=== PATIENT | male | born 1985 | race Caucasian/White ===

== ENCOUNTER 2021-08-14 03:10 | Emergency (ER) | payer OTHER ==
[2021-08-14 04:09] VITALS: TEMP 97.7; BMI 27.1
[2021-08-14] MEDS ORDERED: LIDOCAINE 1%/EPI 1:100000 (20 ML MULTI DOSE VIAL) PNB ONE (04:19)
[2021-08-14] MEDS ORDERED: LIDOCAINE 1%/EPI 1:100000 (20 ML MULTI DOSE VIAL) ONE (04:25)
[2021-08-14] MEDS ORDERED: ACETAMINOPHEN 500 MG TABLET (FP) PO ONE (04:31)
[2021-08-14] MEDS ORDERED: ACETAMINOPHEN 325 MG TABLET (FP) ONE (04:47)
[2021-08-14 06:35] VITALS: BP 111/97; PULSE 84
== END 2021-08-14 07:33 | disposition short-term general hospital (02) ==
LOC: JER 03:10
DX: S02.2XXA Fracture of nasal bones, initial encounter for closed fracture (principal); S81.812A Laceration without foreign body, left lower leg, initial encounter; Y04.0XXA Assault by unarmed brawl or fight, initial encounter
CPT/HCPCS: 70450-TC; 70486-TC; 72125-TC; 73590-TC-LT-FY; 99285-25

== ENCOUNTER 2023-02-17 17:12 | Inpatient (IN) | payer OTHER ==
[2023-02-17 20:59] VITALS: BMI 28.7
[2023-02-17] MEDS ORDERED: LOPERAMIDE HCL 2 MG CAPSULE PO PRN (21:24)
[2023-02-17] MEDS ORDERED: POLYETHYLENE GLYCOL (HEALTHYLAX) 3350 17 GM PACKET PO PRN (21:24)
[2023-02-17] MEDS ORDERED: BENZONATATE 200 MG CAPSULE PO PRN (21:24)
[2023-02-17] MEDS ORDERED: BISMUTH SUBSALICYLATE 524 MG/30 ML PO PRN (21:24)
[2023-02-17] MEDS ORDERED: NALOXONE HCL (KLOXXADO) 8 MG SPRAY NS PRN (21:24)
[2023-02-17] MEDS ORDERED: DICYCLOMINE HCL 10 MG CAPSULE PO PRN (21:24)
[2023-02-17] MEDS ORDERED: METHOCARBAMOL 500 MG TABLET PO PRN (21:24)
[2023-02-17] MEDS ORDERED: BENZOCAINE/MENTHOL (CHLORASEPTIC ) LOZENGE MM PRN (21:24)
[2023-02-17] MEDS ORDERED: NALOXONE HCL 0.4 MG/ML VIAL IM PRN (21:24)
[2023-02-17] MEDS ORDERED: MAG HYDROX/AL HYDROX/SIMETH 30 ML UNIT-DOSE CUP PO PRN (21:24)
[2023-02-17] MEDS ORDERED: P-EPHED 60MG/TRIPROLIDI 2.5MG TABLET PO PRN (21:24)
[2023-02-17] MEDS ORDERED: IBUPROFEN 400 MG TABLET (FP) PO PRN (21:24)
[2023-02-17] MEDS ORDERED: MAGNESIUM HYDROX 2400MG/30ML ORAL SUSPENSION 30 ML CUP PO PRN (21:24)
[2023-02-17] MEDS ORDERED: guaiFENesin 600 MG TABLET.ER (FP) PO PRN (21:24)
[2023-02-17] MEDS ORDERED: methaDONE HCL 10 MG TABLET (FOR DETOX USE ONLY) PO ONE (22:30)
[2023-02-17] MEDS ORDERED: methaDONE HCL 10 MG TABLET (FOR DETOX USE ONLY) ONE (22:30)
[2023-02-17] MEDS ORDERED: MELATONIN 5 MG TABLETS ONE (22:31)
[2023-02-17] MEDS ORDERED: diazePAM 5 MG TABLET ONE (22:39)
[2023-02-17] MEDS: diazePAM 5 MG TABLET PO SCH (22:49)
[2023-02-17] MEDS: THIAMINE HCL 100 MG TABLET (FP) PO SCH (22:52)
[2023-02-17] MEDS: MELATONIN 5 MG TABLETS PO SCH (22:52)
[2023-02-17] MEDS ORDERED: cloNIDine HCL 0.1 MG TABLET ONE (22:58)
[2023-02-17] MEDS: cloNIDine HCL 0.1 MG TABLET PO PRN (23:00)
[2023-02-18] MEDS: diazePAM 5 MG TABLET PO SCH ×4 (05:53→22:49)
[2023-02-18] MEDS: IBUPROFEN 600 MG TABLET (FP) PO PRN ×3 (05:56→20:21)
[2023-02-18] MEDS: PRENATAL VITAMINS W/ FOLIC ACID TABLET (FP) PO SCH (10:21)
[2023-02-18] MEDS: ACETAMINOPHEN 325 MG TABLET (FP) PO PRN ×2 (10:28→18:05)
[2023-02-18] MEDS: ONDANSETRON *ODT* 4 MG TABLET SL PRN ×2 (10:29→18:07)
[2023-02-18 10:40] LABS: POTASSIUM 4.4 mmol/L (3.5-5.1)
[2023-02-18 10:42] LABS: HEMATOCRIT 39.7 % (35.4-49); HEMOGLOBIN 13.3 GM/dL (11.7-16.9); MCH 26.4 pg (25.7-33.7); MCHC 33.3 g/dl (32.0-35.9); MEAN CELL VOLUME 79.3 fl (80-96); MEAN PLT VOLUME 8.4 fl (7.5-11.1); PLATELET COUNT 309 10^3/uL (134-434); RBC 5.01 M/mm3 (4.00-5.60); RDW 15.5 % (11.9-15.9); WHITE BLOOD COUNT 7.3 K/mm3 (4.0-10.0)
[2023-02-18 10:47] LABS: ALBUMIN 3.4 g/dl (3.4-5.0); BLOOD UREA NITROGEN 11.2 mg/dL (7-18)
[2023-02-18 10:48] LABS: CALCIUM 9.4 mg/dL (8.5-10.1)
[2023-02-18 10:50] LABS: CREATININE 0.9 mg/dL (0.55-1.3)
[2023-02-18 10:51] LABS: TOT PROT 7.4 g/dl (6.4-8.2)
[2023-02-18 10:54] LABS: BILIRUBIN,TOTAL 0.7 mg/dL (0.2-1)
[2023-02-18] MEDS: cloNIDine HCL 0.1 MG TABLET PO PRN ×2 (14:23→22:47)
[2023-02-18] MEDS: diazePAM 5 MG TABLET PO PRN ×2 (14:24→20:21)
[2023-02-18] MEDS ORDERED: hydrOXYzine PAMOATE 25 MG CAPSULE (FP) PO ONE (16:58)
[2023-02-18] MEDS: METHOCARBAMOL 500 MG TABLET PO PRN (18:14)
[2023-02-18] MEDS ORDERED: METHOCARBAMOL 500 MG TABLET PO SCH (22:00)
[2023-02-18] MEDS: THIAMINE HCL 100 MG TABLET (FP) PO SCH (22:47)
[2023-02-18] MEDS: MELATONIN 5 MG TABLETS PO SCH (22:47)
[2023-02-19] MEDS: diazePAM 5 MG TABLET PO SCH ×3 (05:56→22:21)
[2023-02-19] MEDS: METHOCARBAMOL 500 MG TABLET PO PRN ×3 (06:02→20:12)
[2023-02-19] MEDS: IBUPROFEN 600 MG TABLET (FP) PO PRN ×3 (06:02→20:13)
[2023-02-19] MEDS: cloNIDine HCL 0.1 MG TABLET PO PRN ×3 (06:07→17:42)
[2023-02-19] MEDS: PRENATAL VITAMINS W/ FOLIC ACID TABLET (FP) PO SCH (09:41)
[2023-02-19] MEDS: diazePAM 5 MG TABLET PO PRN ×2 (09:44→17:43)
[2023-02-19] MEDS ORDERED: methaDONE HCL 10 MG TABLET (FOR DETOX USE ONLY) PO ONE ×2 (10:00→12:12)
[2023-02-19] MEDS: ACETAMINOPHEN 325 MG TABLET (FP) PO PRN ×2 (10:49→17:42)
[2023-02-19] MEDS: MELATONIN 5 MG TABLETS PO SCH (22:21)
[2023-02-19] MEDS: THIAMINE HCL 100 MG TABLET (FP) PO SCH (22:21)
[2023-02-19] MEDS ORDERED: traZODone HCL 50 MG TABLET (FP) PO ONE (23:45)
[2023-02-20] MEDS: IBUPROFEN 600 MG TABLET (FP) PO PRN (05:39)
[2023-02-20] MEDS: METHOCARBAMOL 500 MG TABLET PO PRN (05:39)
[2023-02-20] MEDS ORDERED: diazePAM 5 MG TABLET PO SCH (06:00)
[2023-02-20] MEDS: diazePAM 5 MG TABLET PO PRN (08:01)
[2023-02-20 09:50] VITALS: BP 153/94; PULSE 78; RESP 17; TEMP 98.4
[2023-02-20] MEDS: PRENATAL VITAMINS W/ FOLIC ACID TABLET (FP) PO SCH (10:20)
[2023-02-21] MEDS ORDERED: diazePAM 5 MG TABLET PO ONE (06:00)
[2023-02-21] MEDS ORDERED: methaDONE HCL 10 MG TABLET (FOR DETOX USE ONLY) PO ONE (10:00)
== END 2023-02-20 10:56 | disposition home or self-care (01) | DRG 773 ==
LOC: YASAS 17:12 → Y3N 22:07
PROVIDERS: ADMIT Allergy & Immunology; ATTEND Surgery
PROC: HZ2ZZZZ Detoxification Services for Substance Abuse Treatment (ICD-10-PCS; principal; 2023-02-17)
DX: F11.23 Opioid dependence with withdrawal (principal); F13.230 Sedative, hypnotic or anxiolytic dependence with withdrawal, uncomplicated; F14.20 Cocaine dependence, uncomplicated; F19.282 Other psychoactive substance dependence with psychoactive substance-induced sleep disorder; G47.00 Insomnia, unspecified; Z56.0 Unemployment, unspecified; Z59.00 Homelessness unspecified; S52.612D Displaced fracture of left ulna styloid process, subsequent encounter for closed fracture with routine healing; Y09 Assault by unspecified means
CPT/HCPCS: 36415; 80053; 85027; 86780; 87635; 93005; 93010; Q0162

== ENCOUNTER 2023-11-04 19:01 | Observation (INO) | payer OTHER ==
[2023-11-04] MEDS ORDERED: ACETAMINOPHEN INJECTION 100 ML IVPB ONE (19:41)
[2023-11-04] MEDS ORDERED: FAMOTIDINE 20 MG/50 ML IVPB 20 MG/50 ML MG IVPB ONE (19:41)
[2023-11-04] MEDS: LACTATED RINGERS SOLUTION 1000 ML INFUS.BAG IV ONE (19:58)
[2023-11-04] MEDS: ACETAMINOPHEN 1000 MG/100 ML BAG IVPB ONE (19:58)
[2023-11-04] MEDS: FAMOTIDINE 20 MG/50 ML IVPB 20 MG/50 ML MG IVPB ONE (19:59)
[2023-11-04 20:09] LABS: EOS % 1.7 % (0-4.5); HEMATOCRIT 38.7 % (35.4-49); HEMOGLOBIN 12.6 GM/dL (11.7-16.9); LYMPH % 34.9 % (8-40); MCH 24.5 pg (25.7-33.7); MCHC 32.6 g/dl (32.0-35.9); MEAN CELL VOLUME 75.1 fl (80-96); MEAN PLT VOLUME 7.8 fl (7.5-11.1); MONO % 10.5 % (3.8-10.2); NEUT % 51.9 % (42.8-82.8); PLATELET COUNT 362 10^3/uL (134-434); RBC 5.15 M/mm3 (4.00-5.60); WHITE BLOOD COUNT 8.5 K/mm3 (4.0-10.0)
[2023-11-04 20:27] LABS: POTASSIUM 4.4 mmol/L (3.5-5.1)
[2023-11-04 20:30] LABS: ALBUMIN 3.6 g/dl (3.4-5.0); CALCIUM 9.7 mg/dL (8.5-10.1); MAGNESIUM 2.3 mg/dL (1.8-2.4)
[2023-11-04 20:33] LABS: CREATININE 0.9 mg/dL (0.55-1.3)
[2023-11-04 20:34] LABS: BILIRUBIN,TOTAL 0.4 mg/dL (0.2-1); TOT PROT 8.5 g/dl (6.4-8.2)
[2023-11-04] MEDS ORDERED: ONDANSETRON 4 MG/2 ML VIAL ONE ×2 (20:34→23:20)
[2023-11-04] MEDS: ONDANSETRON 4 MG/2 ML VIAL IVPUSH ONE ×2 (20:43→23:28)
[2023-11-05] MEDS ORDERED: METOCLOPRAMIDE HCL INJECTION 10 MG/2 ML VIAL ONE ×2 (02:53→05:55)
[2023-11-05] MEDS: METOCLOPRAMIDE HCL INJECTION 10 MG/2 ML VIAL IVPB ONE (02:59)
[2023-11-05] MEDS ORDERED: cloNIDine HCL 0.1 MG TABLET PO PRN ×2 (04:24→06:13)
[2023-11-05] MEDS ORDERED: clonazePAM 0.5 MG ODT TABLETS SL PRN (04:24)
[2023-11-05] MEDS ORDERED: chlordiazePOXIDE HCL 25 MG CAPSULE PO PRN (04:44)
[2023-11-05] MEDS ORDERED: HYOSCYAMINE SULFATE 0.125 MG *ODT PO PRN (05:19)
[2023-11-05] MEDS ORDERED: LOPERAMIDE HCL 2 MG CAPSULE PO PRN (05:20)
[2023-11-05] MEDS ORDERED: methaDONE HCL 10 MG TABLET PO ONE (06:00)
[2023-11-05] MEDS: SODIUM CHLORIDE 1,000 ML IV SCH (06:07)
[2023-11-05] MEDS: METOCLOPRAMIDE HCL INJECTION 10 MG/2 ML VIAL IVPB PRN (06:08)
[2023-11-05 06:49] LABS: BASO % 0.8 % (0-2.0); EOS % 0.1 % (0-4.5); HEMATOCRIT 40.5 % (35.4-49); HEMOGLOBIN 13.2 GM/dL (11.7-16.9); LYMPH % 21.2 % (8-40); MCH 24.6 pg (25.7-33.7); MCHC 32.7 g/dl (32.0-35.9); MEAN CELL VOLUME 75.3 fl (80-96); MEAN PLT VOLUME 7.9 fl (7.5-11.1); MONO % 6.1 % (3.8-10.2); NEUT % 71.8 % (42.8-82.8); PLATELET COUNT 359 10^3/uL (134-434); RBC 5.38 M/mm3 (4.00-5.60); WHITE BLOOD COUNT 10.7 K/mm3 (4.0-10.0)
[2023-11-05] MEDS: chlordiazePOXIDE HCL 25 MG CAPSULE PO SCH (07:03)
[2023-11-05] MEDS: HYOSCYAMINE SULFATE 0.125 MG *ODT PO ONE (07:04)
[2023-11-05 07:12] LABS: CALCIUM 9.7 mg/dL (8.5-10.1)
[2023-11-05 07:15] LABS: ALBUMIN 3.7 g/dl (3.4-5.0); BLOOD UREA NITROGEN 15.8 mg/dL (7-18)
[2023-11-05 07:16] LABS: MAGNESIUM 2.2 mg/dL (1.8-2.4)
[2023-11-05 07:18] LABS: CREATININE 0.9 mg/dL (0.55-1.3)
[2023-11-05 07:19] LABS: BILIRUBIN,TOTAL 0.4 mg/dL (0.2-1); TOT PROT 8.4 g/dl (6.4-8.2)
[2023-11-05] MEDS ORDERED: ENOXAPARIN NA (PORCINE) 40 MG/0.4 ML DISP.SYRIN SQ ONE (09:46)
[2023-11-05] MEDS: ENOXAPARIN NA (PORCINE) 40 MG/0.4 ML DISP.SYRIN SQ SCH (10:25)
[2023-11-05] MEDS ORDERED: chlordiazePOXIDE HCL 25 MG CAPSULE ONE ×3 (12:49→16:59)
[2023-11-05] MEDS ORDERED: ACETAMINOPHEN INJECTION 100 ML IVPB ONE ×2 (18:10→18:52)
[2023-11-05] MEDS: ACETAMINOPHEN 1000 MG/100 ML BAG IVPB ONE (18:14)
[2023-11-06] MEDS: ACETAMINOPHEN 325 MG TABLET (FP) PO ONE (00:21)
[2023-11-06 01:12] VITALS: BMI 24.3
[2023-11-06 03:28] LABS: URINE AMPHETAMINES NEGATIVE (NEGATIVE); URINE BARBITURATES NEGATIVE (NEGATIVE)
[2023-11-06 03:29] LABS: PHENCYCLIDINE,URINE NEGATIVE (NEGATIVE)
[2023-11-06 03:43] LABS: COCAINE, UR POSITIVE (NEGATIVE); METHADONE, UR POSITIVE (NEGATIVE); OPIATES, URI POSITIVE (NEGATIVE); URINE BENZODIAZEPINES POSITIVE (NEGATIVE)
[2023-11-06] MEDS: chlordiazePOXIDE HCL 25 MG CAPSULE PO SCH (05:30)
[2023-11-06] MEDS ORDERED: methaDONE HCL 10 MG TABLET PO ONE ×2 (06:00→10:00)
[2023-11-06 08:29] LABS: HEMATOCRIT 41.9 % (35.4-49); MCH 24.7 pg (25.7-33.7); MCHC 33.5 g/dl (32.0-35.9); MEAN CELL VOLUME 73.6 fl (80-96); MEAN PLT VOLUME 8.5 fl (7.5-11.1); PLATELET COUNT 368 10^3/uL (134-434); RBC 5.69 M/mm3 (4.00-5.60); RDW 16.9 % (11.9-15.9); WHITE BLOOD COUNT 9.2 K/mm3 (4.0-10.0)
[2023-11-06] MEDS: methaDONE 40 MG, methaDONE 10 MG PO ONE (08:33)
[2023-11-06 08:38] LABS: POTASSIUM 4.2 mmol/L (3.5-5.1)
[2023-11-06 08:39] LABS: CALCIUM 9.6 mg/dL (8.5-10.1)
[2023-11-06 08:40] LABS: BLOOD UREA NITROGEN 11.8 mg/dL (7-18); MAGNESIUM 2.2 mg/dL (1.8-2.4)
[2023-11-06 08:43] LABS: CREATININE 0.8 mg/dL (0.55-1.3); PHOSPHOROUS 2.4 mg/dL (2.5-4.9)
[2023-11-06] MEDS ORDERED: methaDONE 40 MG, methaDONE 10 MG PO ONE (10:00)
[2023-11-06] MEDS: NAPH,MB-DB/K PH,MBDB POWDER PACKET PO ONE (10:57)
[2023-11-06] MEDS: ACETAMINOPHEN 1000 MG/100 ML BAG IVPB PRN (18:36)
[2023-11-06] MEDS: CYCLOBENZAPRINE HCL 10 MG TABLET (FP) PO ONE (20:44)
[2023-11-06] MEDS: METHYL SALICYLATE/MENTHOL 30 GM TUBE TP ONE (22:56)
[2023-11-07] MEDS ORDERED: chlordiazePOXIDE HCL 10 MG CAPSULE PO PRN
[2023-11-07] MEDS: METHYL SALICYLATE/MENTHOL 30 GM TUBE TP SCH (01:52)
[2023-11-07] MEDS ORDERED: methaDONE HCL 10 MG TABLET (FOR DETOX USE ONLY) PO ONE (06:00)
[2023-11-07] MEDS: chlordiazePOXIDE HCL 10 MG CAPSULE PO SCH (06:05)
[2023-11-07] MEDS: methaDONE 40 MG, methaDONE 20 MG PO ONE (06:13)
[2023-11-07 06:16] VITALS: RESP 18
[2023-11-07 06:48] LABS: HEMATOCRIT 45.2 % (35.4-49); HEMOGLOBIN 14.7 GM/dL (11.7-16.9); MCH 24.5 pg (25.7-33.7); MCHC 32.5 g/dl (32.0-35.9); MEAN CELL VOLUME 75.4 fl (80-96); PLATELET COUNT 335 10^3/uL (134-434); RDW 16.7 % (11.9-15.9); WHITE BLOOD COUNT 11.1 K/mm3 (4.0-10.0)
[2023-11-07 07:13] LABS: POTASSIUM 4.4 mmol/L (3.5-5.1)
[2023-11-07 07:18] LABS: BLOOD UREA NITROGEN 11.7 mg/dL (7-18); CALCIUM 9.6 mg/dL (8.5-10.1)
[2023-11-07 07:19] LABS: MAGNESIUM 2.1 mg/dL (1.8-2.4)
[2023-11-07 07:22] LABS: CREATININE 0.8 mg/dL (0.55-1.3); PHOSPHOROUS 2.8 mg/dL (2.5-4.9)
[2023-11-07] MEDS ORDERED: methaDONE HCL 10 MG TABLET PO ONE (10:00)
[2023-11-07] MEDS ORDERED: methaDONE 40 MG, methaDONE 20 MG PO ONE (10:00)
[2023-11-07 18:01] VITALS: BP 122/90; PULSE 90; TEMP 98.5
[2023-11-07] MEDS ORDERED: CYCLOBENZAPRINE HCL 10 MG TABLET (FP) PO ONE (20:22)
[2023-11-08] MEDS ORDERED: chlordiazePOXIDE HCL 10 MG CAPSULE PO SCH (05:00)
[2023-11-08] MEDS ORDERED: methaDONE HCL 10 MG TABLET PO ONE ×2 (06:00→10:00)
[2023-11-08] MEDS ORDERED: methaDONE 40 MG, methaDONE 30 MG PO ONE ×2 (07:00→10:00)
[2023-11-09] MEDS ORDERED: chlordiazePOXIDE HCL 10 MG CAPSULE PO ONE (05:00)
[2023-11-09] MEDS ORDERED: methaDONE HCL 10 MG TABLET (FOR DETOX USE ONLY) PO ONE (06:00)
[2023-11-09] MEDS ORDERED: methaDONE HCL 40 MG DISPERSABLE TABLET PO ONE ×2 (07:00→10:00)
[2023-11-10] MEDS ORDERED: methaDONE HCL 10 MG TABLET PO ONE (06:00)
== END 2023-11-07 18:57 | disposition short-term general hospital (02) ==
LOC: JER 19:01 → JERBED 11-05 01:32 → J4S 11-05 22:02
PROVIDERS: ADMIT Internal Medicine; ATTEND Internal Medicine
PROC: 3E033NZ Introduction of Analgesics, Hypnotics, Sedatives into Peripheral Vein, Percutaneous Approach (ICD-10-PCS; principal; 2023-11-05)
PROC: 3E033GC Introduction of Other Therapeutic Substance into Peripheral Vein, Percutaneous Approach (ICD-10-PCS; 2023-11-05)
PROC: 3E0337Z Introduction of Electrolytic and Water Balance Substance into Peripheral Vein, Percutaneous Approach (ICD-10-PCS; 2023-11-05)
PROC: 3E023NZ Introduction of Analgesics, Hypnotics, Sedatives into Muscle, Percutaneous Approach (ICD-10-PCS; 2023-11-05)
DX: F11.93 Opioid use, unspecified with withdrawal (principal); F10.90 Alcohol use, unspecified, uncomplicated; R00.1 Bradycardia, unspecified; R94.31 Abnormal electrocardiogram [ECG] [EKG]; K50.90 Crohn's disease, unspecified, without complications; F14.21 Cocaine dependence, in remission; F17.200 Nicotine dependence, unspecified, uncomplicated
CPT/HCPCS: 36415; 80048; 80053; 80305; 80307; 83735; 84100; 84439; 84443; 84484; 85025; 85027; 93005; 93010; 93306-TC; 96365; 96372; 96375; 96376; 99285-25; G0378; J0131